=== PATIENT | male | born 1990 | race Caucasian/White ===

== ENCOUNTER 2017-09-13 15:55 | Emergency (ER) | payer BC ==
[2017-09-13 16:28] VITALS: BP 112/59
--- NOTE | 2017-09-13 16:40 | UC ---
Throat Pain/Nasal Pepito HPI - HPI Summary HPI Summary: Pt c/o sinus congestion, sinus pressure and TUCKER X 1 week. - History of Current Complaint Chief Complaint: UCGeneralIllness Stated Complaint: SINUS COMPLAINT Time Seen by Provider: 09/13/17 16:34 Hx Obtained From: Patient Onset/Duration: Gradual Onset, Lasting Weeks - 1, Still Present, Worse Since - onset Severity: Moderate Pain Intensity: 6 Associated Signs & Symptoms: Positive: Sinus Discomfort Related History: Seasonal Allergies - Epiglottits Risk Factors Epiglottis Risk Factors: Negative - Allergies/Home Medications Allergies/Adverse Reactions: Allergies Allergy/AdvReac Type Severity Reaction Status Date / Time cefaclor [From [facility]] Allergy Hives Verified 09/13/17 16:22 Penicillins Allergy Hives Verified 09/13/17 16:22 Home Medications: Home Medications Venlafaxine CAP (NF) [Effexor CAP (NF)] 75 mg PO DAILY 09/13/17 [History Confirmed 09/13/17] clonazePAM [Klonopin] 1 mg PO BID 09/13/17 [History Confirmed 09/13/17] PMH/Surg Hx/FS Hx/Imm Hx Previously Healthy: Yes Respiratory History: Asthma - Surgical History Surgical History: Yes Surgery Procedure, Year, and Place: SINUS SURGERY. [facility] - Family History Known Family History: Positive: Cardiac Disease - Social History Occupation: Employed Full-time Lives: With Family Alcohol Use: Rare Substance Use Type: None Smoking Status (MU): Never Smoked Tobacco Have You Smoked in the Last Year: No Review of Systems Constitutional: Chills, Fatigue Skin: Negative Eyes: Negative ENT: Sinus Congestion, Sinus Pain/Tenderness Respiratory: Negative Cardiovascular: Negative Gastrointestinal: Negative Genitourinary: Negative Motor: Negative Neurovascular: Negative Musculoskeletal: Negative Neurological: Headache Psychological: Negative Is Patient Immunocompromised?: No All Other Systems Reviewed And Are Negative: Yes Physical Exam Triage Information Reviewed: Yes Appearance: Ill-Appearing Vital Signs: Initial Vital Signs Temp 99.3 F 09/13/17 16:20 Pulse 87 09/13/17 16:20 Resp 16 09/13/17 16:20 BP 112/59 09/13/17 16:20 Pulse Ox 98 09/13/17 16:20 Vital Signs Reviewed: Yes Eye Exam: Normal ENT Exam: Other ENT: Positive: Nasal congestion, Sinus tenderness Neck exam: Normal Respiratory Exam: Normal Cardiovascular Exam: Normal Musculoskeletal Exam: Normal Neurological Exam: Normal Psychological Exam: Normal Skin Exam: Normal Throat Pain/Nasal Course/Dx - Differential Dx/Diagnosis Differential Diagnosis/HQI/PQRI: Sinusitis, URI Provider Diagnoses: sinusitis Discharge - Sign-Out/Discharge Documenting (check all that apply): Discharge - Discharge Plan Condition: Stable Disposition: HOME Prescriptions: DOXYcycline CAP(*) [DOXYcycline 100MG CAP(*)] 100 mg PO Q12H #20 cap Patient Education Materials: Sinusitis (ED) Referrals: John HARRELL,Gerard Sherman [Primary Care Provider] - If Needed - Billing Disposition and Condition Condition: STABLE Disposition: HOME
== END 2017-09-13 16:45 | disposition home or self-care (01) ==
LOC: UCCORT 15:55
DX: J32.9 Chronic sinusitis, unspecified (principal); Z88.0 Allergy status to penicillin; Z88.8 Allergy status to other drugs, medicaments and biological substances
CPT/HCPCS: 99202; G0463

== ENCOUNTER 2017-09-24 17:01 | Emergency (ER) | payer BC ==
[2017-09-24 17:51] VITALS: BP 148/64
--- NOTE | 2017-09-24 18:09 | UC ---
Lower Extremity/Ankle HPI - HPI Summary HPI Summary: pt was on a young stallion yesterday that threw him. his R foot was caught in the stirrup. he is c/o R foot/ankle pain. - History of Current Complaint Chief Complaint: UCLowerExtremity Stated Complaint: RT ANKLE INJURY Time Seen by Provider: 09/24/17 18:03 Hx Obtained From: Patient Onset/Duration: Sudden Onset Pain Intensity: 6 Aggravating Factor(s): Ambulation Alleviating Factor(s): Rest Able to Bear Weight: Yes - Risk Factors Septic Arthritis Risk Factor: Negative - Allergies/Home Medications Allergies/Adverse Reactions: Allergies Allergy/AdvReac Type Severity Reaction Status Date / Time cefaclor [From [facility]] Allergy Hives Verified 09/24/17 17:52 Penicillins Allergy Hives Verified 09/24/17 17:52 PMH/Surg Hx/FS Hx/Imm Hx - Additional Past Medical History Additional PMH: allergies - Surgical History Surgical History: Yes Surgery Procedure, Year, and Place: SINUS SURGERY. LAMINECTOMY - Family History Known Family History: Positive: Cardiac Disease - Social History Occupation: Employed Full-time Lives: Alone Alcohol Use: Rare Substance Use Type: None Smoking Status (MU): Never Smoked Tobacco Have You Smoked in the Last Year: No - Immunization History Vaccination Up to Date: Yes Review of Systems Constitutional: Negative Skin: Negative Eyes: Negative ENT: Negative Respiratory: Negative Cardiovascular: Negative Gastrointestinal: Negative Genitourinary: Negative Motor: Negative Neurovascular: Negative Musculoskeletal: Other: - pain, swelling, bruising R ankle/foot Neurological: Negative Psychological: Negative Is Patient Immunocompromised?: No All Other Systems Reviewed And Are Negative: Yes Physical Exam Triage Information Reviewed: Yes Appearance: Well-Appearing Vital Signs: Initial Vital Signs Temp 99.3 F 09/24/17 17:47 Pulse 87 09/24/17 17:47 Resp 14 09/24/17 17:47 BP 148/64 09/24/17 17:47 Pulse Ox 100 09/24/17 17:47 Vital Signs Reviewed: Yes Eyes: Positive: Conjunctiva Clear ENT: Positive: Normal ENT inspection Neck: Positive: Supple, Nontender, No Lymphadenopathy Respiratory: Positive: Lungs clear, Normal breath sounds Cardiovascular: Positive: RRR, No Murmur Abdomen Description: Positive: Nontender, No Organomegaly, Soft Bowel Sounds: Positive: Present Musculoskeletal: Positive: Other: - RLE: hip, knee, achilles are atraumatic. R lateral ankle and foot with moderate swelling, purple bruising and tenderness. gross s/v/m intact to toe. Diagnostics - Radiology No standard instances Xray Interpretation: Positive (See Comments) - sts, no fx/dislocation Radiology Interpretation Completed By: Radiologist Lower Extremity Course/Dx - Course Course Of Treatment: no fx or dislocation - Differential Dx/Diagnosis Provider Diagnoses: Sprain R ankle. Sprain R foot Discharge - Sign-Out/Discharge Documenting (check all that apply): Discharge - Discharge Plan Condition: Stable Disposition: HOME Patient Education Materials: Foot Sprain (ED), Ankle Sprain (DC) Forms: *Work Release Referrals: John HARRELL,Gerard Sherman [Primary Care Provider] - If Needed Ben Segal MD [Medical Doctor] - 7 Days ( ) Additional Instructions: Boot until cleared - Billing Disposition and Condition Condition: STABLE Disposition: HOME
--- NOTE | 2017-09-24 18:33 | RAD ---
INDICATION: Lateral foot and ankle pain and swelling one week after falling off a horse COMPARISON: None. TECHNIQUE: 3 views of the right ankle and 3 views of the right foot were obtained. FINDINGS: The bones are normal alignment. Joint spaces appear maintained. No fracture is seen. IMPRESSION: NO RADIOGRAPHICALLY APPARENT FRACTURE OR DISLOCATION OF THE RIGHT FOOT OR ANKLE. If the patient's symptoms persist, follow-up imaging is recommended.
[2017-09-24] MEDS ORDERED: Ibuprofen ADULT LIQ* 600 MG/30 ML UDC PO ONE (18:47)
== END 2017-09-24 18:57 | disposition home or self-care (01) ==
LOC: UCCORT 17:01
DX: S93.601A Unspecified sprain of right foot, initial encounter (principal); S93.401A Sprain of unspecified ligament of right ankle, initial encounter; W23.0XXA Caught, crushed, jammed, or pinched between moving objects, initial encounter; Y93.52 Activity, horseback riding; Y92.9 Unspecified place or not applicable; Z88.8 Allergy status to other drugs, medicaments and biological substances
CPT/HCPCS: 99211; G0463

== ENCOUNTER 2017-12-12 14:05 | Emergency (ER) | payer BC ==
[2017-12-12 14:14] VITALS: BP 125/69
--- NOTE | 2017-12-12 14:25 | UC ---
Throat Pain/Nasal Pepito HPI - HPI Summary HPI Summary: sinus pain and pressure x 2 weeks + nasal congestion , pnd no cough , + chills, no fever hx of septal deviation with frequent sinus infection - History of Current Complaint Chief Complaint: UCRespiratory Stated Complaint: SINUS COMPLAINT Time Seen by Provider: 12/12/17 14:17 Hx Obtained From: Patient Onset/Duration: Gradual Onset, Lasting Weeks - 2, Still Present Severity: Moderate Pain Intensity: 0 Cough: None Associated Signs & Symptoms: Positive: Sinus Discomfort, Nasal Discharge. Negative: Fever, Vomiting, Rash - Allergies/Home Medications Allergies/Adverse Reactions: Allergies Allergy/AdvReac Type Severity Reaction Status Date / Time cefaclor [From [facility]] Allergy Hives Verified 12/12/17 14:11 Penicillins Allergy Hives Verified 12/12/17 14:11 Home Medications: Home Medications LevoCETirizine TAB (NF) [Xyzal TAB (NF)] 10 mg PO DAILY 12/12/17 [History Confirmed 12/12/17] PMH/Surg Hx/FS Hx/Imm Hx - Additional Past Medical History Additional PMH: frequent sinus infection - Surgical History Surgical History: Yes Surgery Procedure, Year, and Place: SINUS SURGERY. LAMINECTOMY - Family History Known Family History: Positive: Cardiac Disease - Social History Alcohol Use: Rare Substance Use Type: None Smoking Status (MU): Never Smoked Tobacco Have You Smoked in the Last Year: No - Immunization History Vaccination Up to Date: Yes Review of Systems Constitutional: Negative Skin: Negative Eyes: Negative ENT: Nasal Discharge, Sinus Congestion, Sinus Pain/Tenderness Respiratory: Negative Cardiovascular: Negative Is Patient Immunocompromised?: No All Other Systems Reviewed And Are Negative: Yes Physical Exam Triage Information Reviewed: Yes Appearance: Well-Appearing, No Pain Distress, Well-Nourished Vital Signs: Initial Vital Signs Temp 98.9 F 12/12/17 14:10 Pulse 90 12/12/17 14:10 Resp 16 12/12/17 14:10 BP 125/69 12/12/17 14:10 Pulse Ox 98 12/12/17 14:10 ENT: Positive: Normal ENT inspection, Hearing grossly normal, Pharynx normal, Nasal congestion, Nasal drainage, TMs normal, Sinus tenderness. Negative: TM bulging, TM dull, TM red Neck: Positive: Supple, Nontender, No Lymphadenopathy Respiratory: Positive: Chest non-tender, Lungs clear, Normal breath sounds Cardiovascular: Positive: RRR, No Murmur, Pulses Normal Skin Exam: Normal Throat Pain/Nasal Course/Dx - Differential Dx/Diagnosis Provider Diagnoses: maxillary sinusitis Discharge - Sign-Out/Discharge Documenting (check all that apply): Discharge/Admit/Transfer - Discharge Plan Condition: Stable Disposition: HOME Prescriptions: DOXYcycline CAP(*) [DOXYcycline 100MG CAP(*)] 100 mg PO BID #20 cap Patient Education Materials: Sinusitis (ED) Referrals: John HARRELL,Gerard Sherman [Primary Care Provider] - If Needed - Billing Disposition and Condition Condition: STABLE Disposition: Home
== END 2017-12-12 14:26 | disposition home or self-care (01) ==
LOC: UCCORT 14:05
DX: J32.0 Chronic maxillary sinusitis (principal); Z88.1 Allergy status to other antibiotic agents; Z88.0 Allergy status to penicillin
CPT/HCPCS: 99212; G0463

== ENCOUNTER 2019-05-02 11:50 | Emergency (ER) | payer OTHER ==
[2019-05-02 12:18] VITALS: BP 133/85
--- NOTE | 2019-05-02 12:36 | UC ---
Throat Pain/Nasal Pepito HPI - HPI Summary HPI Summary: Pt presents with c/o nasal congestion, sinus pressure and pain X 1 week. Pt has been taking OTC medications with little to no relief. Pt has hx of rhinoplasty for deviated septum. Has frequent sinusitis. - History of Current Complaint Chief Complaint: UCGeneralIllness Stated Complaint: SINUSES Time Seen by Provider: 05/02/19 12:16 Hx Obtained From: Patient Onset/Duration: Gradual Onset, Lasting Days, Still Present Severity: Moderate Pain Intensity: 6 Cough: None Associated Signs & Symptoms: Positive: Sinus Discomfort Related History: Prior ENT Surgery - Epiglottits Risk Factors Epiglottis Risk Factors: Negative - Allergies/Home Medications Allergies/Adverse Reactions: Allergies Allergy/AdvReac Type Severity Reaction Status Date / Time cefaclor [From [facility]] Allergy See Comment Verified 05/02/19 12:19 Penicillins Allergy See Comment Verified 05/02/19 12:19 Home Medications: Home Medications Acetaminophen/Dextromethorphan [Daytime Cold & Cough Liquid] 1 dose PO ONCE [History Confirmed 05/02/19] Esomeprazole Magnesium [Nexium 24Hr] 20 mg PO DAILY 05/02/19 [History Confirmed 05/02/19] Levocetirizine Dihydrochloride [Xyzal] 5 mg PO DAILY 05/02/19 [History Confirmed 05/02/19] Montelukast Sodium TAB* [Singulair 10 MG TAB*] 10 mg PO DAILY 05/02/19 [History Confirmed 05/02/19] guaiFENesin LIQ* [Robitussin*] 10 ml PO Q4H PRN 05/02/19 [History Confirmed ] PMH/Surg Hx/FS Hx/Imm Hx Previously Healthy: Yes - Surgical History Surgical History: Yes Surgery Procedure, Year, and Place: laminectomy - Family History Known Family History: Positive: Cardiac Disease - Social History Occupation: Employed Full-time Lives: With Family Alcohol Use: None Substance Use Type: None Smoking Status (MU): Never Smoked Tobacco Have You Smoked in the Last Year: No - Immunization History Vaccination Up to Date: Yes Review of Systems All Other Systems Reviewed And Are Negative: Yes Constitutional: Positive: Negative Skin: Positive: Negative Eyes: Positive: Negative ENT: Positive: Sinus Congestion, Sinus Pain/Tenderness Respiratory: Positive: Cough Cardiovascular: Positive: Negative Gastrointestinal: Positive: Negative Genitourinary: Positive: Negative Motor: Positive: Negative Neurovascular: Positive: Negative Musculoskeletal: Positive: Negative Neurological: Positive: Negative Psychological: Positive: Negative Is Patient Immunocompromised?: No Physical Exam Triage Information Reviewed: Yes Appearance: Well-Appearing Vital Signs: Initial Vital Signs Temp 99.1 F 05/02/19 12:16 Pulse 77 05/02/19 12:16 Resp 14 05/02/19 12:16 BP 133/85 05/02/19 12:16 Pulse Ox 97 05/02/19 12:16 Vital Signs Reviewed: Yes Eye Exam: Normal ENT: Positive: Nasal congestion, Sinus tenderness Dental Exam: Normal Neck exam: Normal Respiratory Exam: Normal Cardiovascular Exam: Normal Musculoskeletal Exam: Normal Neurological Exam: Normal Psychological: Positive: Normal Response To Family Skin Exam: Normal Throat Pain/Nasal Course/Dx - Differential Dx/Diagnosis Differential Diagnosis/HQI/PQRI: Sinusitis, URI Provider Diagnosis: Sinusitis Discharge ED - Sign-Out/Discharge Documenting (check all that apply): Patient Departure All imaging exams completed and their final reports reviewed: No Studies - Discharge Plan Condition: Stable Disposition: HOME Prescriptions: Azithromycin TAB* [Zithromax TAB (Z-KENYA) 250 mg #6 tabs] 2 tab PO .TODAY, THEN 1 DAILY #1 kenya Patient Education Materials: Sinusitis (ED) Referrals: [facility] [place] [facility]ERR[facility] [Outside] - If Needed No Primary Care Phys,NOPCP [Primary Care Provider] - - Billing Disposition and Condition Condition: STABLE Disposition: Home
== END 2019-05-02 12:41 | disposition home or self-care (01) ==
LOC: MERGE 11:50 → UCCORT 11:50
DX: J32.9 Chronic sinusitis, unspecified (principal); R05 Cough; Z88.1 Allergy status to other antibiotic agents; Z88.0 Allergy status to penicillin
CPT/HCPCS: 99202; G0463

== ENCOUNTER 2019-05-10 15:00 | Emergency (ER) | payer OTHER ==
[2019-05-10 15:40] VITALS: BP 131/82
--- NOTE | 2019-05-10 15:50 | UC ---
Throat Pain/Nasal Pepito HPI - HPI Summary HPI Summary: Pt presents with c/o continued sinus pressure and pain. Pt was seen here on for similar c/o diagnosed with sinusitis and RX'd a z-pac. Pt requested z-pac at time of visit. Pt has hx of deviated septum has had several sinus surgeries and is prone to sinus infections per pt. - History of Current Complaint Chief Complaint: UCGeneralIllness Stated Complaint: SINUS COMPLAINT Time Seen by Provider: 05/10/19 15:38 Hx Obtained From: Patient Onset/Duration: Gradual Onset, Lasting Weeks, Still Present Severity: Moderate Pain Intensity: 5 Associated Signs & Symptoms: Positive: Sinus Discomfort Related History: Seasonal Allergies, Prior ENT Surgery - Epiglottits Risk Factors Epiglottis Risk Factors: Negative - Allergies/Home Medications Allergies/Adverse Reactions: Allergies Allergy/AdvReac Type Severity Reaction Status Date / Time cefaclor [From [facility]] Allergy Hives Verified 05/10/19 15:40 Penicillins Allergy Hives Verified 05/10/19 15:40 PMH/Surg Hx/FS Hx/Imm Hx Previously Healthy: Yes - Surgical History Surgical History: Yes Surgery Procedure, Year, and Place: laminectomy - Family History Known Family History: Positive: Cardiac Disease - Social History Occupation: Employed Full-time Lives: With Family Alcohol Use: None Substance Use Type: None Smoking Status (MU): Never Smoked Tobacco Have You Smoked in the Last Year: No - Immunization History Vaccination Up to Date: Yes Review of Systems All Other Systems Reviewed And Are Negative: Yes Constitutional: Positive: Fatigue Skin: Positive: Negative Eyes: Positive: Negative ENT: Positive: Sinus Congestion, Sinus Pain/Tenderness Respiratory: Positive: Negative Cardiovascular: Positive: Negative Gastrointestinal: Positive: Negative Genitourinary: Positive: Negative Motor: Positive: Negative Neurovascular: Positive: Negative Musculoskeletal: Positive: Negative Neurological: Positive: Headache Is Patient Immunocompromised?: No Physical Exam Triage Information Reviewed: Yes Appearance: Ill-Appearing Vital Signs: Initial Vital Signs Temp 97.9 F 05/10/19 15:35 Pulse 67 05/10/19 15:35 Resp 18 05/10/19 15:35 BP 131/82 05/10/19 15:35 Pulse Ox 97 05/10/19 15:35 Vital Signs Reviewed: Yes Eye Exam: Normal ENT: Positive: Nasal congestion, Sinus tenderness Dental Exam: Normal Neck exam: Normal Respiratory: Positive: No respiratory distress Musculoskeletal Exam: Normal Neurological Exam: Normal Psychological Exam: Normal Skin Exam: Normal Throat Pain/Nasal Course/Dx - Course Course Of Treatment: I discussed with the pt the need to follow up with ENT specialist in [place] and pt verbalized understanding and agreed to plan of care. - Differential Dx/Diagnosis Differential Diagnosis/HQI/PQRI: Sinusitis, Other - viral syndrome Provider Diagnosis: Sinusitis Discharge ED - Sign-Out/Discharge Documenting (check all that apply): Patient Departure All imaging exams completed and their final reports reviewed: No Studies - Discharge Plan Condition: Stable Disposition: HOME Prescriptions: DOXYcycline CAP(*) [DOXYcycline 100MG CAP(*)] 100 mg PO Q12H #14 cap Patient Education Materials: Sinusitis (ED) Referrals: No Primary Care Phys,NOPCP [Primary Care Provider] - Additional Instructions: Please follow up with your ENT specialist as needed or if your symptoms do not improve. If you develop diarrhea, please stop taking the antibiotics and begin and anti-diarrheal medication immediately and got to the closest emergency room as soon as possible. - Billing Disposition and Condition Condition: STABLE Disposition: Home
== END 2019-05-10 16:06 | disposition home or self-care (01) ==
LOC: UCCORT 15:00
DX: J32.9 Chronic sinusitis, unspecified (principal); R53.83 Other fatigue; Z88.0 Allergy status to penicillin; Z88.1 Allergy status to other antibiotic agents
CPT/HCPCS: 99212; G0463